=== PATIENT | male | born 1940 | race Caucasian/White ===

== ENCOUNTER 2016-06-13 10:30 | Inpatient (IN) | payer OTHER ==
[~2016-06-13] VITALS: Ht 170.2 cm; Wt 69.6 kg
[2016-06-13 11:25] LABS: EOSINOPHIL (%) 4.1 % (0-5); EOSINOPHIL COUNT 0.3 K/uL (0-0.3); HEMATOCRIT 36.5 % (38.0-50.0); IMMATURE GRANULOCYTE (%) 0.3 % (0.0-0.7); INSTRUMENT ABS NEUTROPHIL CT 4.8 K/uL; LYMPHOCYTE COUNT 0.9 K/uL (1.0-2.8); MCH 28.3 PG (29.0-34.0); MCHC 32.1 G/DL (30.0-36.0); MCV 88.4 FL (86-99); MEAN PLAT.VOLUME 10.4 uM^3 (9.0-12.4); MONOCYTE (%) 9.5 % (3-12); MONOCYTE COUNT 0.6 K/uL (0-0.8); NEUTROPHIL (%) 72.4 % (45-76); NEUTROPHIL COUNT 4.8 K/uL (1.8-6.4); PLATELET COUNT 229 K/uL (156-360); RBC DIS.WIDTH-CV 14.4 % (11.8-14.6); RBC DIS.WIDTH-SD 45.2 % (39-53); RED BLOOD COUNT 4.13 M/uL (4.00-5.50); WHITE BLOOD COUNT 6.6 K/uL (4.1-10.2)
[2016-06-13 11:36] LABS: CHLORIDE 106 mEq/L (99-109); POTASSIUM 4.2 mEq/L (3.7-5.4); SODIUM 141 mEq/L (136-147)
[2016-06-13 11:37] LABS: GLUCOSE 116 mg/dL (70-99)
[2016-06-13 11:39] LABS: ANION GAP 12 MEQ/L (2-14)
[2016-06-13 11:41] LABS: GFR ESTIMATE (CALCULATED) > 59 mL/min/
[2016-06-13 11:42] LABS: UREA NITROGEN (BUN) 17 mg/dL (9-23)
[2016-06-13] MEDS ORDERED: LISINOPRIL20 MG PO (16:36)
[2016-06-13] MEDS ORDERED: LATANOPROST2.5 ML BOTH EYES (16:37)
[2016-06-13] MEDS ORDERED: ATORVASTATIN CA80 MG PO (16:37)
[2016-06-13] MEDS ORDERED: TAMSULOSIN HCL0.4 MG PO (16:37)
[2016-06-13] MEDS ORDERED: METOPROLOL SUCC25 MG PO (16:38)
[2016-06-13] MEDS ORDERED: LO-DOSE ASPIRIN81 M2 PO (16:38)
[2016-06-13] MEDS ORDERED: OMEPRAZOLE20 MG PO (16:38)
[2016-06-13] MEDS ORDERED: NORVASC5 MG PO (16:39)
[2016-06-13 19:01] VITALS: BP 129/86
[2016-06-13 21:06] VITALS: BP 140/68
[2016-06-13 23:09] VITALS: BP 142/59
[2016-06-13 23:25] VITALS: BP 119/68
[2016-06-14 03:30] VITALS: BP 101/59
[2016-06-14 06:17] LABS: EOSINOPHIL (%) 0 % (0-5); HEMATOCRIT 34.9 % (38.0-50.0); IMMATURE GRANULOCYTE (%) 0.3 % (0.0-0.7); INSTRUMENT ABS NEUTROPHIL CT 5.2 K/uL; LYMPHOCYTE COUNT 0.6 K/uL (1.0-2.8); MCH 28.5 PG (29.0-34.0); MCHC 32.4 G/DL (30.0-36.0); MCV 87.9 FL (86-99); MEAN PLAT.VOLUME 10.1 uM^3 (9.0-12.4); MONOCYTE COUNT 0.1 K/uL (0-0.8); NEUTROPHIL (%) 88.3 % (45-76); NEUTROPHIL COUNT 5.2 K/uL (1.8-6.4); PLATELET COUNT 216 K/uL (156-360); RBC DIS.WIDTH-CV 13.9 % (11.8-14.6); RBC DIS.WIDTH-SD 44.2 % (39-53); RED BLOOD COUNT 3.97 M/uL (4.00-5.50); WHITE BLOOD COUNT 5.9 K/uL (4.1-10.2)
[2016-06-14 06:40] LABS: ALKALINE PHOSPHATASE 75 IU/L (3-129); ANION GAP 9 MEQ/L (2-14); CHLORIDE 106 MEQ/L (99-109); GFR ESTIMATE (CALCULATED) > 59 mL/min/; GLUCOSE 159 mg/dL (70-99); POTASSIUM 4.4 MEQ/L (3.7-5.4); SAMPLE HEMOLYSIS CHECK 0; SAMPLE ICTERIC CHECK 0; SAMPLE LIPEMIA CHECK 0; SODIUM 140 MEQ/L (136-147); TOTAL BILIRUBIN 0.5 MG/DL (0.0-1.0); UREA NITROGEN (BUN) 23 mg/dL (9-23)
[2016-06-14 07:19] VITALS: BP 125/59
[2016-06-14 16:00] VITALS: BP 135/69
[2016-06-14 19:30] VITALS: BP 140/63
[2016-06-14 23:47] VITALS: BP 116/546
[2016-06-15 06:50] LABS: EOSINOPHIL (%) 0 % (0-5); HEMATOCRIT 33.8 % (38.0-50.0); IMMATURE GRANULOCYTE (%) 0.5 % (0.0-0.7); IMMATURE GRANULOCYTE COUNT 0.1 K/uL; INSTRUMENT ABS NEUTROPHIL CT 12.3 K/uL; LYMPHOCYTE COUNT 0.6 K/uL (1.0-2.8); MCH 28.9 PG (29.0-34.0); MCHC 33.1 G/DL (30.0-36.0); MCV 87.3 FL (86-99); MEAN PLAT.VOLUME 10.4 uM^3 (9.0-12.4); MONOCYTE (%) 2.6 % (3-12); MONOCYTE COUNT 0.4 K/uL (0-0.8); NEUTROPHIL (%) 92.3 % (45-76); NEUTROPHIL COUNT 12.3 K/uL (1.8-6.4); PLATELET COUNT 220 K/uL (156-360); RBC DIS.WIDTH-CV 14.4 % (11.8-14.6); RBC DIS.WIDTH-SD 44.8 % (39-53); RED BLOOD COUNT 3.87 M/uL (4.00-5.50)
[2016-06-15 06:53] LABS: WHITE BLOOD COUNT 13.3 K/uL (4.1-10.2)
[2016-06-15 07:09] LABS: ANION GAP 9 MEQ/L (2-14); CHLORIDE 106 MEQ/L (99-109); GFR ESTIMATE (CALCULATED) > 59 mL/min/; GLUCOSE 133 mg/dL (70-99); POTASSIUM 4.4 MEQ/L (3.7-5.4); SAMPLE HEMOLYSIS CHECK 0; SAMPLE ICTERIC CHECK 0; SAMPLE LIPEMIA CHECK 0; SODIUM 142 MEQ/L (136-147); UREA NITROGEN (BUN) 27 mg/dL (9-23)
[2016-06-15 07:19] VITALS: BP 134/61
[2016-06-15 11:14] VITALS: BP 136/63
[2016-06-15 16:14] VITALS: BP 142/66
[2016-06-15 19:24] VITALS: BP 157/63
[2016-06-15 23:22] VITALS: BP 141/57
[2016-06-16 03:25] VITALS: BP 131/59
[2016-06-16 07:55] VITALS: BP 129/75
[2016-06-16 12:03] VITALS: BP 129/60
[2016-06-16 14:49] VITALS: BP 132/68
[2016-06-16 19:10] VITALS: BP 128/68
[2016-06-16 22:55] VITALS: BP 129/60
[2016-06-17 03:20] VITALS: BP 121/65
[2016-06-17 07:25] VITALS: BP 139/74
[2016-06-17 11:07] VITALS: BP 137/73
[2016-06-17 15:24] VITALS: BP 138/72
[2016-06-17 19:21] VITALS: BP 158/81
[2016-06-17 23:07] VITALS: BP 141/67
[2016-06-18 03:26] VITALS: BP 128/72
[2016-06-18 06:39] LABS: HEMATOCRIT 36.1 % (38.0-50.0); MCH 28.5 PG (29.0-34.0); MCHC 32.4 G/DL (30.0-36.0); MEAN PLAT.VOLUME 10.5 uM^3 (9.0-12.4); PLATELET COUNT 219 K/uL (156-360); RBC DIS.WIDTH-CV 14.7 % (11.8-14.6); RBC DIS.WIDTH-SD 46.8 % (39-53); WHITE BLOOD COUNT 9.9 K/uL (4.1-10.2)
[2016-06-18 07:06] LABS: ANION GAP 10 MEQ/L (2-14); CHLORIDE 105 MEQ/L (99-109); GFR ESTIMATE (CALCULATED) > 59 mL/min/; GLUCOSE 105 mg/dL (70-99); POTASSIUM 4.2 MEQ/L (3.7-5.4); SAMPLE HEMOLYSIS CHECK 0; SAMPLE ICTERIC CHECK 0; SAMPLE LIPEMIA CHECK 0; SODIUM 143 MEQ/L (136-147); UREA NITROGEN (BUN) 26 mg/dL (9-23)
[2016-06-18 07:11] VITALS: BP 132/65
[2016-06-18 10:49] VITALS: BP 125/70
[2016-06-18 15:30] VITALS: BP 144/63
[2016-06-18 20:21] VITALS: BP 146/66
[2016-06-18 23:27] VITALS: BP 137/62
[2016-06-19 06:53] LABS: HEMATOCRIT 37.2 % (38.0-50.0); MCH 28.3 PG (29.0-34.0); MCHC 32.3 G/DL (30.0-36.0); MCV 87.7 FL (86-99); MEAN PLAT.VOLUME 10.7 uM^3 (9.0-12.4); PLATELET COUNT 209 K/uL (156-360); RBC DIS.WIDTH-CV 14.6 % (11.8-14.6); RBC DIS.WIDTH-SD 46.5 % (39-53); RED BLOOD COUNT 4.24 M/uL (4.00-5.50); WHITE BLOOD COUNT 11.8 K/uL (4.1-10.2)
[2016-06-19 07:11] VITALS: BP 124/63
[2016-06-19 07:14] LABS: ANION GAP 8 MEQ/L (2-14); CHLORIDE 104 MEQ/L (99-109); GFR ESTIMATE (CALCULATED) > 59 mL/min/; GLUCOSE 117 mg/dL (70-99); POTASSIUM 3.9 MEQ/L (3.7-5.4); SAMPLE HEMOLYSIS CHECK 0; SAMPLE ICTERIC CHECK 0; SAMPLE LIPEMIA CHECK 0; SODIUM 139 MEQ/L (136-147); UREA NITROGEN (BUN) 30 mg/dL (9-23)
[2016-06-19 15:20] VITALS: BP 125/65
[2016-06-19 20:47] VITALS: BP 124/63
[2016-06-19 23:09] VITALS: BP 155/65
[2016-06-20 05:36] LABS: HEMATOCRIT 36.4 % (38.0-50.0); MCH 28.8 PG (29.0-34.0); MCHC 32.4 G/DL (30.0-36.0); MCV 88.8 FL (86-99); MEAN PLAT.VOLUME 10.6 uM^3 (9.0-12.4); PLATELET COUNT 192 K/uL (156-360); RBC DIS.WIDTH-CV 14.6 % (11.8-14.6); RBC DIS.WIDTH-SD 46.6 % (39-53); WHITE BLOOD COUNT 15.1 K/uL (4.1-10.2)
[2016-06-20 06:04] LABS: ANION GAP 8 MEQ/L (2-14); CHLORIDE 105 MEQ/L (99-109); GFR ESTIMATE (CALCULATED) > 59 mL/min/; GLUCOSE 125 mg/dL (70-99); POTASSIUM 4.3 MEQ/L (3.7-5.4); SAMPLE HEMOLYSIS CHECK 0; SAMPLE ICTERIC CHECK 0; SAMPLE LIPEMIA CHECK 0; SODIUM 140 MEQ/L (136-147); UREA NITROGEN (BUN) 36 mg/dL (9-23)
[2016-06-20 07:22] VITALS: BP 138/67
[2016-06-20 15:27] VITALS: BP 132/64
[2016-06-20 23:06] VITALS: BP 133/66
[2016-06-21 08:16] VITALS: BP 126/55
[2016-06-21] MEDS ORDERED: LEVETIRACETAM250 MG PO (10:15)
[2016-06-21] MEDS ORDERED: DEXAMETHASONE4 MG PO (10:15)
== END 2016-06-21 13:38 | disposition home health service (06) | DRG 55 ==
LOC: EME 10:30 → EDOF 17:13 → 5EAST 17:13
PROVIDERS: Emergency Medicine; Hospitalist
DX: C79.31 Secondary malignant neoplasm of brain (principal); C77.2 Secondary and unspecified malignant neoplasm of intra-abdominal lymph nodes; I10 Essential (primary) hypertension; E78.5 Hyperlipidemia, unspecified; R00.1 Bradycardia, unspecified; Z85.048 Personal history of other malignant neoplasm of rectum, rectosigmoid junction, and anus; Z86.73 Personal history of transient ischemic attack (TIA), and cerebral infarction without residual deficits; I25.10 Atherosclerotic heart disease of native coronary artery without angina pectoris; Z95.1 Presence of aortocoronary bypass graft; Z80.1 Family history of malignant neoplasm of trachea, bronchus and lung
CPT/HCPCS: 70553; 77280; 77290; 77307; 77331; 77334; 77412; 77417; 80048; 80053; 85025; 85027; 87493; 93005; 93880; 99281; 99285; J1100; J2405; J8540

== ENCOUNTER 2016-07-14 19:45 | Inpatient (IN) | payer OTHER ==
[~2016-07-14] VITALS: Ht 177.8 cm; Wt 62.8 kg
[~2016-07-14 19:45] MED LIST: ATORVASTATIN CA80 MG PO; DEXAMETHASONE4 MG PO; LATANOPROST2.5 ML BOTH EYES; LEVETIRACETAM250 MG PO; LISINOPRIL20 MG PO; LO-DOSE ASPIRIN81 M2 PO; METOPROLOL SUCC25 MG PO; NORVASC5 MG PO; OMEPRAZOLE20 MG PO; TAMSULOSIN HCL0.4 MG PO
[2016-07-14 20:22] LABS: CHLORIDE 101 mEq/L (99-109); HEMATOCRIT 42.8 % (38.0-50.0); MCH 28.2 PG (29.0-34.0); MCHC 32.9 G/DL (30.0-36.0); MCV 85.6 FL (86-99); MEAN PLAT.VOLUME 9.2 uM^3 (9.0-12.4); NRBC (%) 0.3 /100 WBC (0-0); PLATELET COUNT 163 K/uL (156-360); POTASSIUM 4.2 mEq/L (3.7-5.4); RBC DIS.WIDTH-CV 15.3 % (11.8-14.6); RBC DIS.WIDTH-SD 47.8 % (39-53); SODIUM 137 mEq/L (136-147)
[2016-07-14 20:23] LABS: WHITE BLOOD COUNT 7.1 K/uL (4.1-10.2)
[2016-07-14 20:24] LABS: GLUCOSE 163 mg/dL (70-99)
[2016-07-14 20:25] LABS: ANION GAP 11 MEQ/L (2-14)
[2016-07-14 20:28] LABS: GFR ESTIMATE (CALCULATED) > 59 mL/min/; UREA NITROGEN (BUN) 23 mg/dL (9-23)
[2016-07-14 20:54] LABS: PTT 24.6 (25-32)
[2016-07-14 21:07] LABS: TROP-I INTERPRETATION NEGATIVE; TROPONIN-I 0.02 ng/mL (0.0-0.30)
[2016-07-14 22:08] LABS: SAMPLE HEMOLYSIS CHECK 0; SAMPLE ICTERIC CHECK 0; SAMPLE LIPEMIA CHECK 0
[2016-07-14 22:14] LABS: HDL CHOLESTEROL 71 MG/DL (Desirable>=40); LDL CHOLESTEROL 125 mg/dL (Desirable<100); NON-HDL CHOLESTEROL 143 mg/dL (Desirable<160); TOTAL CHOLESTEROL 214 mg/dL (Desirable<200); TRIGLYCERIDES 91 MG/DL (Normal: <150)
[2016-07-15 03:39] VITALS: BP 100/60
[2016-07-15 09:48] LABS: Estimated Average Glucose 143 mg/dL (70-123); HEMOGLOBIN A1c (GLYCOHEMOGLOB) 6.6 % HGB (Below 5.7)
[2016-07-18 06:00] VITALS: BP 00/00
[2016-07-18] MEDS ORDERED: ATIVAN INTE2 MG/1 ML PO (09:38)
[2016-07-18] MEDS ORDERED: MORPHINE S10 MG/5 ML PO (09:38)
[2016-07-18] MEDS ORDERED: HYOSYNE0.125 MG/1 PO (09:38)
== END 2016-07-18 14:05 | disposition hospice, home (50) | DRG 374 ==
LOC: EME → EDBD 19:45 → EME 19:45 → EDOF 07-15 00:03 → 5EAST 07-15 00:03
PROVIDERS: Emergency Medicine
DX: C20 Malignant neoplasm of rectum (principal); G93.40 Encephalopathy, unspecified; Z51.5 Encounter for palliative care; C79.31 Secondary malignant neoplasm of brain; R41.82 Altered mental status, unspecified; I70.90 Unspecified atherosclerosis; R53.1 Weakness; I25.10 Atherosclerotic heart disease of native coronary artery without angina pectoris; Z66 Do not resuscitate; R68.2 Dry mouth, unspecified; E78.5 Hyperlipidemia, unspecified; I10 Essential (primary) hypertension; Z86.73 Personal history of transient ischemic attack (TIA), and cerebral infarction without residual deficits; Z92.21 Personal history of antineoplastic chemotherapy
CPT/HCPCS: 70450; 71010; 80048; 80061; 81003; 83036; 84484; 85027; 85610; 85730; 93005; 94799; 99281; 99285; J1100; J1953; J2060; J2270; J2405; J7030; J7050